=== PATIENT | female | born 1965 | race Caucasian/White ===

== ENCOUNTER → 2019-02-15 | Outpatient (CLI) | payer OTHER ==
--- NOTE | 2019-02-15 13:04 | RADIOLOGY REPORT (SQ) ---
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 Coronal T2/HASTE imaging. CONTRAST TYPE AND DOSE: 15 mL Dotarem. RENAL FUNCTION: Not indicated. ACR Type II contrast agent associated with few, if any, unconfounded cases of NSF LIMITATIONS: None. FINDINGS: VISUALIZED UPPER ABDOMEN: Limited evaluation. No acute or suspicious findings suggested. SEGMENTATION: No transitional anatomy. The lowest well-developed disc space is labeled L5-S1. ALIGNMENT: Anatomic. VERTEBRAE: Intact. No fractures. BONE MARROW: Minimal fatty reactive vertebral body endplate changes at L3-4, L4-5 and L5-S1 DISC SIGNAL: Diffuse decreased T2 weighted intervertebral disc signal POSTERIOR ELEMENTS: Post bilateral laminectomy at L4. HARDWARE: None in the spine. CORD AND CONUS: Normal in size and signal intensity. Conus at the L1-2 level. SOFT TISSUES: No aortic aneurysm seen. No bulky retroperitoneal adenopathy or mass. No paraspinal mas s or fluid. T11-12: Mild bilateral facet hypertrophy. No significant central or foraminal encroachment. T12-L1: Mild bilateral facet hypertrophy. No significant central or foraminal encroachment. L1-L2: Cjeb-xc-lykgryup bilateral facet hypertrophy. No significant central or foraminal encroachmen t. L2-L3: Moderate bilateral facet hypertrophy. No significant central or foraminal encroachment. L3-L4: Moderate bilateral facet hypertrophy. Minimal posterior disc bulging. Borderline central can al narrowing. Mild bilateral inferior foraminal stenosis without exiting L3 nerve root impingement L4-L5: Old bilateral laminectomy. Thecal sac is widely decompressed on axial images 23-25. There is bilateral facet hypertrophy with moderate right and mild left foraminal narrowing. No exiting L4 ne rve root impingement. L5-S1: Moderate bilateral facet hypertrophy, mild posterior disc bulging. No central canal stenosis. Mild bilateral foraminal narrowing without exit L5 nerve root impingement SACRUM: Visualized upper sacrum intact. ENHANCEMENT: No abnormal conus or lumbar nerve root enhancement OTHER: No other significant findings. IMPRESSION: Diffuse facet arthropathy. Old postsurgical changes at L4-5. Multilevel foraminal narr owing without exit nerve root impingement TECHNICAL DOCUMENTATION: JOB ID: [id number] [employer]- All Rights Reserved Reading location - IP/workstation name: [email or web address]
== END ==
LOC: RAD 10:57
PROVIDERS: ATTEND Pediatrics
DX: M96.1 Postlaminectomy syndrome, not elsewhere classified (principal)
CPT/HCPCS: 72158; A9576

== ENCOUNTER 2020-05-22 08:02 | Emergency (ER) | payer OTHER ==
--- NOTE | 2020-05-22 15:12 | EKG REPORT ---
SEVERITY:- BORDERLINE ECG - SINUS RHYTHM BORDERLINE T ABNORMALITIES, INFERIOR LEADS : Confirmed by: Ayad Quinn MD 22-May-2020 15:12:08
== END 2020-05-22 08:16 | disposition left against medical advice (07) ==
LOC: ER 08:02
DX: Z53.21 Procedure and treatment not carried out due to patient leaving prior to being seen by health care provider (principal); R07.9 Chest pain, unspecified
CPT/HCPCS: 93005; 93010